=== PATIENT | male | born 1950 | race Caucasian/White ===

== ENCOUNTER → 2024-03-18 12:24 | Outpatient (REF) | payer MEDICARE, BC, SELFPAY | LOC: HWRAD 12:24 | PROVIDERS: ATTENDING PHYSICIAN Otolaryngology; FAMILY PHYSICIAN Family Medicine | DX: R93.0 Abnormal findings on diagnostic imaging of skull and head, not elsewhere classified (principal) | CPT/HCPCS: 70486 ==